=== PATIENT | female | born 1940 | race Caucasian/White ===

== ENCOUNTER 2016-09-20 15:41 | Observation (INO) ==
[2016-09-20] MEDS ORDERED: ZOFRAN IV PRN (15:52)
[2016-09-20] MEDS ORDERED: NS 1,000 ML IV ONE (15:52)
[2016-09-20 16:43] LABS: HEMATOCRIT 36.7 % (37.0-47.0); MCH 31.4 PG (27-31); MCHC 32.7 g/dL (33-37); MCV 96.1 FL (81-99); MPV 10.7 FL (7.4-10.4); RBC 3.82 XMIL (4.2-5.4)
[2016-09-20] MEDS ORDERED: XARELTO PO SCH (17:00)
[2016-09-20] MEDS: NS 1,000 ML IV SCH ×2 (19:03)
[2016-09-20] MEDS: TYLENOL PO PRN (21:48)
[2016-09-21] MEDS ORDERED: CORTROSYN IV ONE (05:30)
[2016-09-21] MEDS: TYLENOL PO PRN (05:32)
[2016-09-21] MEDS: NS 1,000 ML IV SCH (05:32)
[2016-09-21] MEDS: SYNTHROID PO SCH ×2 (05:33→07:49)
[2016-09-21 06:08] LABS: AGAP 8; BUN 14 mg/dL (8-22); CALCIUM 8.9 mg/dL (8.8-10.2); CHLORIDE 109 mmol/L (98-107); COSMO 283; POTASSIUM 4.3 mmol/L (3.5-5.1); SODIUM 142 mmol/L (136-145); TCO2 25 mmol/L (25-35)
[2016-09-21 07:19] VITALS: BP 132/57
--- NOTE | 2016-09-24 04:15 | DISCHARGE SUMMARY ---
ADMISSION DATE: 09/20/2016 DISCHARGE DATE: 09/21/2016 DISCHARGE DIAGNOSES: 1. Orthostatic hypotension. 2. Primary hypothyroidism. 3. History of malignant carcinoid of the terminal ileum, status post right hemicolectomy. 4. 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 5. Lumbar spinal stenosis. DISCHARGE INSTRUCTIONS: 1. Return to clinic in 1 week to see me, Dr. Forrest Gooden, in anticipation of a transition of care visit. 2. Activity as tolerated. 3. Healthy heart diet. 4. Medications: Vitamin B12 injections monthly, levothyroxine 88 mcg daily, Xarelto 20 mg daily. PHYSICAL EXAMINATION: General: This is an elderly, frail, 76-year-old, lady in no apparent distress. Vital Signs: She is afebrile. Vital signs are stable. CV: Regular rate and rhythm with a 2/6 systolic ejection murmur at the left sternal margin. Lungs: Clear. Abdomen: Soft, nontender, with active bowel sounds. HOSPITAL COURSE: Ms. Hightower was admitted to [facility] as an outpatient with observation services for evaluation of orthostatic hypotension. She did not have any obvious GI losses such as nausea, vomiting, or diarrhea. Blood counts were stable and there was no evidence of rectal bleeding. We felt that she was volume depleted. We rehydrated her with normal saline and the orthostasis resolved. We performed a Cortrosyn stimulation test which was within normal limits. I will see her back in the office in 1 week for a transition of care visit. At that visit, we will recheck her blood pressure sitting and standing. If she is orthostatic, I am going to check a 24-hour urine for total cortisol. If the total cortisol level is low, I will repeat the Cortrosyn stimulation test. If she becomes orthostatics again with normal urinary cortisol levels, I will treat her for dysautonomic orthostatic hypotension with either midodrine or Florinef. cc: Sahra Gooden MD
== END 2016-09-21 09:34 | disposition home or self-care (01) ==
LOC: DIRADM → 4N 15:41
PROVIDERS: ADMIT Internal Medicine; ATTEND Internal Medicine